=== PATIENT | male | born 1970 | race Caucasian/White ===

== ENCOUNTER 2017-05-07 22:03 | Emergency (ER) | payer BC, OTHER ==
--- NOTE | 2017-05-07 22:32 | ERPHSYRPT ---
- History of Present Illness Time Seen by Provider: 05/07/17 22:29 Source: patient Physician History: 46-year-old male came to the emergency room with injury to his right index finger with puncture injury to the medial side of his right index finger with 2 superficial puncture wound 1 cm apart. Patient got concerned he could not figure out injury. weather Due to peterson or, possibly spider bite, so he came to the emergency room Occurred: just prior to arrival Method of Injury: unknown Severity of Pain-Max: none Severity of Pain-Current: none Extremities Pain Location: 2nd finger: right (minimal tingling and numbness) Allergies/Adverse Reactions: No Known Drug Allergies Allergy (Unverified 05/07/17 22:44) Home Medications: No Reportable Medications [No Reported Medications] 05/07/17 [History] - Review of Systems Constitutional: No Symptoms Eyes: No Symptoms Ears, Nose, & Throat: No Symptoms Respiratory: No Symptoms Cardiac: No Symptoms Abdominal/Gastrointestinal: No Symptoms Musculoskeletal: Other (right index finger injury) Skin: No Symptoms - Nursing Vital Signs Nursing Vital Signs: Initial Vital Signs Temperature 98.5 F Temperature Source Oral Pulse Rate 70 Respiratory Rate 20 Blood Pressure [] 144/100 Pain Intensity 2 - Physical Exam General Appearance: no apparent distress Hand Exam: normal ROM, soft tissue tenderness, swelling, No bone tenderness, No deformity, No laceration, No limited ROM, No nail injury - Course Nursing assessment & vital signs reviewed: Yes - Radiology Exams Hand X-ray Interpretation: Reviewed by me Ordered Tests: Active Orders 24 hr Category Date Time Status HAND (MINIMUM 3 VIEWS) Stat Exams 05/07/17 22:28 Taken Medication Summary Discontinued Medications Generic Name Dose Route Start Last Admin Trade Name Freq PRN Reason Stop Dose Admin Diphtheria/Tetanus/Acell Pertussis 0.5 ml 05/07/17 22:52 Adacel Vial IM 05/07/17 22:53 .ONCE ONE - Progress Progress: improved Counseled pt/family regarding: diagnosis, need for follow-up, rad results - Departure Time of Disposition: 22:54 Departure Disposition: Home Clinical Impression: Injury of finger of right hand Qualifiers: Encounter type: initial encounter Qualified Code(s): S69.91XA - Unspecified injury of right wrist, hand and finger(s), initial encounter Condition: Good Critical Care Time: No Referrals: JANESSA MURRAY NP [Primary Care Provider] -
[2017-05-07 22:50] VITALS: BP 144/100; PULSE 70; O2SAT 20
[2017-05-07] MEDS ORDERED: Adacel Vial IM ONE ×2 (22:52→22:54)
--- NOTE | 2017-05-08 06:38 | XRAY ---
Indication: Second finger puncture wound. Comparison: None 3 views of the right hand demonstrates mild proximal second finger soft tissue swelling. No other bony, articular, or soft tissue abnormalities.
== END 2017-05-07 23:10 | disposition home or self-care (01) ==
LOC: ED 22:03
DX: S61.230A Puncture wound without foreign body of right index finger without damage to nail, initial encounter (principal)
CPT/HCPCS: 73130; 90471; 90715; 99281; 99284

== ENCOUNTER 2017-10-20 06:14 | Day surgery (SDC) | payer OTHER ==
[2017-10-20] MEDS ORDERED: Lactated Ringers 1,000 ML IV SCH (06:30)
[2017-10-20 09:33] VITALS: O2SAT 100
[2017-10-20 10:31] VITALS: BP 154/107; PULSE 57
--- NOTE | 2017-10-21 07:46 | OP ---
SURGERY DATE/TIME: 10/20/2017 0755 PREOPERATIVE DIAGNOSES: 1) Nausea and vomiting. 2) Abdominal pain. POSTOPERATIVE DIAGNOSES: 1) Moderate gastritis. 2) Normal colon. 3) Poor bowel prep. PROCEDURES: 1) EGD. 2) Colonoscopy. SURGEON: Lito Antoine M.D. ANESTHESIA: MAC by Ace Stewart CRNA. ESTIMATED BLOOD LOSS: Minimal. SPECIMENS: Two cold forceps biopsies from the gastric antrum sent for Helicobacter pylori testing. DESCRIPTION OF PROCEDURE: After informed written consent was obtained, the patient was taken to the endoscopy suite. He underwent monitored anesthesia and a bite block was inserted. The endoscope was inserted in the posterior oropharynx and under direct visualization the esophagus was traversed. The gastroesophageal junction had a normal appearance free of lesions or defects. The gastric mucosa appeared normal with no obvious lesions or defects until the level of the gastric antrum was reached. There was diffuse moderate gastritis type changes with no focal ulcerations or bleeding present. The pylorus was traversed and the first and second portions of the duodenum were within normal limits. Two cold forceps biopsies were taken from the antrum and sent for Helicobacter pylori testing. The remainder of the exam again was unremarkable upon withdrawal of the scope. The scope was removed and the scopes were switched. Digital rectal exam showed normal sphincter tone and no internal lesions. The scope was inserted in the rectum and sequentially the entire colonic mucosa was traversed. The level of cecum was reached and verified with direct visualization of ileocecal valve. Upon withdrawal careful mucosal inspection revealed no obvious or gross abnormalities. However there was semisolid stool present throughout the entire length of the colon with poor visualization at multiple areas. Irrigation and suction were used to improve the view. We were able but the exam was suboptimal due to the poor bowel prep. Prior to withdrawal retroflexion showed no internal lesions. The scope was removed and the patient was transferred to the recovery room in excellent condition.
== END 2017-10-20 10:05 | disposition home or self-care (01) ==
LOC: SDC 06:14
PROVIDERS: ATTEND Family Medicine
PROC: 0DB78ZX Excision of Stomach, Pylorus, Via Natural or Artificial Opening Endoscopic, Diagnostic (ICD-10-PCS; principal; 2017-10-20)
PROC: 0DJD8ZZ Inspection of Lower Intestinal Tract, Via Natural or Artificial Opening Endoscopic (ICD-10-PCS; 2017-10-20)
DX: K29.70 Gastritis, unspecified, without bleeding (principal); R10.9 Unspecified abdominal pain
CPT/HCPCS: 740; 810

== ENCOUNTER 2018-09-23 19:37 | Emergency (ER) | payer OTHER ==
--- NOTE | 2018-09-23 21:36 | ERPHSYRPT ---
- History of Present Illness Time Seen by Provider: 09/23/18 21:30 Source: patient, family Exam Limitations: no limitations Patient Subjective Stated Complaint: Pt is alert and oriented. pt is ambulatory with a steady gait. pt states that he fell while walking his dog and hit his head. he has some debris in his laceration over his left eyebrow. pt is not actively bleeding. pt denies pain at this time. Triage Nursing Assessment: see above Physician History: pt trip walking dog and hit ground getting a piece of wood in his forehead - no LOC; Occurred: just prior to arrival Severity: mild Head Injury Location: frontal Method of Injury: fell Loss of Consciousness: no loss of consciousness Associated Symptoms: denies symptoms Allergies/Adverse Reactions: No Known Drug Allergies Allergy (Unverified 05/07/17 22:44) Home Medications: Atorvastatin Calcium [Lipitor] 10 mg PO DAILY 10/20/17 [History] Cephalexin [Keflex] 250 mg PO QID 09/23/18 [History] Hx Tetanus, Diphtheria Vaccination/Date Given: Yes Hx Influenza Vaccination/Date Given: No Hx Pneumococcal Vaccination/Date Given: No - Review of Systems Constitutional: No Fever, No Chills Eyes: No Symptoms Ears, Nose, & Throat: No Symptoms Respiratory: No Cough, No Dyspnea Cardiac: No Chest Pain, No Edema, No Syncope Abdominal/Gastrointestinal: No Abdominal Pain, No Nausea, No Vomiting, No Diarrhea Genitourinary Symptoms: No Dysuria Musculoskeletal: No Back Pain, No Neck Pain Skin: Other (lac with FB), No Rash Neurological: No Dizziness, No Focal Weakness, No Sensory Changes Psychological: No Symptoms Endocrine: No Symptoms All Other Systems: Reviewed and Negative - Past Medical History Pertinent Past Medical History: No Neurological History: No Pertinent History ENT History: No Pertinent History Cardiac History: No Pertinent History Respiratory History: No Pertinent History Endocrine Medical History: No Pertinent History Musculoskeletal History: Fractures GI Medical History: No Pertinent History History: Renal Disease Psycho-Social History: No Pertinent History Male Reproductive Disorders: No Pertinent History Other Medical History: reduced kidney function - Past Surgical History Past Surgical History: Yes Neuro Surgical History: No Pertinent History Cardiac: No Pertinent History Respiratory: No Pertinent History Gastrointestinal: No Pertinent History Genitourinary: No Pertinent History Musculoskeletal: Orthopedic Surgery Male Surgical History: No Pertinent History Other Surgical History: right ankle - Social History Smoking Status: Never smoker Exposure to second hand smoke: No Drug Use: none Patient Lives Alone: No - Nursing Vital Signs Nursing Vital Signs: Initial Vital Signs Pulse Rate 86 09/23/18 19:57 Respiratory Rate 18 09/23/18 19:57 Blood Pressure 153/96 09/23/18 19:57 O2 Sat by Pulse Oximetry 96 09/23/18 19:57 Pain Scale Pain Intensity 0 - Lula Coma Score Best Eye Response (Creole): (4) open spontaneously Best Verbal Response (Lula): (5) oriented Best Motor Response (Creole): (6) obeys commands Creole Total: 15 - Physical Exam General Appearance: no apparent distress, alert Eye Exam: bilateral eye: PERRL, EOMI ENT Exam: airway nml Cardiovascular/Respiratory Exam: chest non-tender, normal breath sounds, regular rate/rhythm Gastrointestinal/Abdominal Exam: soft, non tender, no distention Back Exam: normal inspection, No vertebral tenderness Extremity Exam: non-tender, normal range of motion, normal inspection Mental Status Exam: alert, oriented x 3, cooperative Coordination/Gait Exam: normal finger to nose, normal gait Motor/Sensory Exam: no motor deficit, no sensory deficit, CN II-XII intact DTR Exam: bicep (R): 2+, bicep (L): 2+, tricep (R): 2+, tricep (L): 2+, knee (R) : 2+, knee (L): 2+, ankle (R): 2+, ankle (L): 2+ Skin Exam: normal color, warm, dry, No rash SpO2 Interpretation: normal SpO2: 96 Oxygen Delivery: Room Air Procedures - Laceration/Wound Repair Left Head Wound Location: Left, forehead Wound Length (cm): 4 Wound's Depth, Shape: irregular, into subcut Wound Explored: foreign body removed Irrigated: Yes (500 cc) Hibiclens Prep: Yes Anesthesia: 1% Lidocaine Volume Anesthetic (ccs): 3 Wound Debrided: extensive Suture Size/Type: 5-0, ethilon Number of Sutures: 8 Layer Closure?: No Sterile Dressing Applied?: Yes Splint Applied?: No Sling Applied?: No - Course Nursing assessment & vital signs reviewed: Yes - Progress Progress: improved, re-examined Progress Note: 09/23/18 21:32 pt was advised that some small foregn material likely or at least microscopic is still in wound and discussed pro and con of closing vs open packing and he would like to have it closed and take the chance for infection , without further immediate surgery or referral at this time- debridement removed much FB and eventually no further is seen or palpable or on belinda wipes of recesses of the wound; irrigation was also accomplished. 09/23/18 21:42 pt advised that a scar is likely , and that if infection occurs it will have to be packed open . Counseled pt/family regarding: diagnosis, need for follow-up, rad results - Departure Time of Disposition: 21:38 Departure Disposition: Home Clinical Impression: fb laceration forehead Condition: Good Critical Care Time: No Referrals: JANESSA MURRAY NP [Primary Care Provider] - Instructions: Removal of Foreign Body in Skin, Concussion in Adults Additional Instructions: there could still be some or at least microscopic material in the wound and it is at increased risk sherrill infectin , so f/u with your dr is important and sutures should be removed in 5 days . return meantime id any signs of infection or concerns; recheck your BP with your dr as it is a little elevated. Prescriptions: Cephalexin Mh 500 mg [Keflex 500 mg] 500 mg PO QID #60 capsule
[2018-09-23 22:52] VITALS: BP 151/97; PULSE 81; O2SAT 95
--- NOTE | 2018-09-24 08:22 | XRAY ---
Indication: Right periorbital pain following fall. Possible foreign body. Comparison: None 4 views of the orbits obtained. No bony, articular, or soft tissue abnormalities. Specifically no radiopaque foreign body. Mild opacification left maxillary sinus without fluid leveling. Impression: Negative orbits. Incidental left maxillary sinus disease.
== END 2018-09-23 22:56 | disposition home or self-care (01) ==
LOC: ED 19:37
DX: S01.82XA Laceration with foreign body of other part of head, initial encounter (principal); W01.198A Fall on same level from slipping, tripping and stumbling with subsequent striking against other object, initial encounter; Y93.K1 Activity, walking an animal; Z79.899 Other long term (current) drug therapy
CPT/HCPCS: 12002; 70200; 99283

== ENCOUNTER 2021-11-16 22:55 | Emergency (ER) | payer BC, OTHER ==
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
[2021-11-16] MEDS ORDERED: Hydromorphone 1 mg/ml Injection IM ONE (23:10)
[2021-11-16] MEDS ORDERED: Norflex 60 MG/2 ML IM ONE (23:11)
[2021-11-16] MEDS ORDERED: ZOFRAN ODT 4 MG PO ONE (23:11)
[2021-11-16] MEDS ORDERED: solu-MEDROL 125 MG, Sterile H2O 10 ml 2 ML IM ONE ×2 (23:12)
[2021-11-16] MEDS ORDERED: Norflex 60 MG/2 ML ONE (23:20)
[2021-11-16] MEDS ORDERED: ZOFRAN ODT 4 MG ONE (23:20)
[2021-11-16] MEDS ORDERED: Hydromorphone 1 mg/ml Injection ONE (23:20)
[2021-11-16] MEDS ORDERED: solu-MEDROL ONE (23:21)
[2021-11-16] MEDS ORDERED: Sterile H2O 10 ml IJ ONE (23:21)
[2021-11-16] MEDS ORDERED: PERCOCET TABLET 5/325MG PO STA (23:56)
[2021-11-17] MEDS ORDERED: PERCOCET TABLET 5/325MG ONE (00:01)
[2021-11-17 00:18] VITALS: BP 123/86; PULSE 60; O2SAT 98
--- NOTE | 2021-11-17 08:53 | XRAY ---
Indication: Pain following fall. Comparison: None 2 view right ribs demonstrates mild degenerative changes throughout visualized thoracolumbar spine. No other bony, articular, or soft tissue abnormalities.
== END 2021-11-17 00:18 | disposition home or self-care (01) ==
LOC: ED 22:55
DX: S20.211A Contusion of right front wall of thorax, initial encounter (principal); Y93.72 Activity, wrestling; U07.1 COVID-19; E78.5 Hyperlipidemia, unspecified; I10 Essential (primary) hypertension; E11.9 Type 2 diabetes mellitus without complications; Z79.891 Long term (current) use of opiate analgesic; Z79.52 Long term (current) use of systemic steroids
CPT/HCPCS: 71100; 96372; 99284; J1170; J2360; J2930; Q0162; A9270-GY

== ENCOUNTER 2021-11-21 14:50 | Emergency (ER) | payer OTHER ==
[2021-11-21 15:17] VITALS: BP 111/82
[2021-11-21] MEDS ORDERED: Hydromorphone 1 mg/ml Injection IM ONE (15:29)
[2021-11-21] MEDS ORDERED: Hydromorphone 1 mg/ml Injection ONE (15:36)
--- NOTE | 2021-11-21 16:34 | XRAY ---
Indication: Right flank/back pain. Multiple contiguous axial images obtained through the abdomen and pelvis without contrast. Comparison: None Lung bases hyperinflated and clear. Heart not enlarged. Noncontrasted stomach and bowel loops appear nonobstructed. Normal air-filled appendix. Mild diffuse scattered colonic fecal debris greatest in the right hemicolon. No free fluid/air. Right kidney is atrophic. Remaining liver, gallbladder, pancreas, spleen, adrenal glands, kidneys, ureters, and bladder are unremarkable for noncontrast exam. Minimal aortoiliac calcifications without AAA. Osseous structures intact with mild degenerative changes throughout the thoracolumbar spine. No ventral or inguinal hernias. Impression: 1. Mild fecal stasis greatest in right hemicolon. 2. Right renal atrophy. 3. Remaining CT abdomen/pelvis without contrast exam is negative.
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
[2021-11-21 17:09] VITALS: PULSE 72; O2SAT 97
== END 2021-11-21 17:08 | disposition home or self-care (01) ==
LOC: ED 14:50
DX: S20.221A Contusion of right back wall of thorax, initial encounter (principal); W03.XXXA Other fall on same level due to collision with another person, initial encounter; Y93.72 Activity, wrestling; E78.5 Hyperlipidemia, unspecified; I10 Essential (primary) hypertension; E11.9 Type 2 diabetes mellitus without complications; Z79.891 Long term (current) use of opiate analgesic
CPT/HCPCS: 74176; 96372; 99284; J1170; L0625

== ENCOUNTER 2025-02-12 00:50 | Emergency (ER) | payer OTHER ==
[2025-02-12] MEDS ORDERED: XYLOCAINE 1% HCL 20 ML MDV IJ ONE (00:51)
[2025-02-12 01:08] VITALS: TEMP 98.5
[2025-02-12] MEDS ORDERED: Rocephin 1000 MG INJ ONE (01:22)
[2025-02-12] MEDS ORDERED: NORCO 5/325 MG ONE (01:22)
[2025-02-12] MEDS ORDERED: XYLOCAINE 1% HCL 20 ML MDV ONE (01:22)
[2025-02-12] MEDS: NORCO 5/325 MG PO ONE (01:24)
--- NOTE | 2025-02-12 01:25 | ERPHSYRPT ---
- History of Present Illness Time Seen by Provider: 02/12/25 01:21 Source: patient Exam Limitations: no limitations Patient Subjective Stated Complaint: c/o toothache Triage Nursing Assessment: patient brought self to ED with c/o toothache and facial swelling. patient had the same pain a month ago with the same tooth on bottom right side of mouth. No drainage present, swelling and tenderness present. Patient rates pain 6/10, hypertensive, gait steady, patient doesn't appear to be in any distress at this time. Timing/Duration: today Severity: mild Modifying Factors: Improves With: cold therapy, eating Associated Symptoms: denies symptoms Allergies/Adverse Reactions: No Known Drug Allergies Allergy (Verified 02/12/25 00:56) Home Medications: Losartan Potassium 25 mg PO DAILY 02/09/25 [History] allopurinoL [Allopurinol] 200 mg PO DAILY 02/09/25 [History] Hx Tetanus, Diphtheria Vaccination/Date Given: Yes Hx Influenza Vaccination/Date Given: No Hx Pneumococcal Vaccination/Date Given: No Travel Risk - International Travel Have you traveled outside of the country in past 3 weeks: No - Emerging Infectious Disease Are you exhibiting symptoms associated with any current EIDs: No - Review of Systems Constitutional: No Symptoms Eyes: No Symptoms Ears, Nose, & Throat: Other (toothache) Respiratory: No Symptoms Cardiac: No Symptoms Abdominal/Gastrointestinal: No Symptoms Genitourinary Symptoms: No Symptoms Musculoskeletal: No Symptoms - Past Medical History Pertinent Past Medical History: No Neurological History: Other ENT History: No Pertinent History Cardiac History: Hypertension Respiratory History: No Pertinent History Endocrine Medical History: No Pertinent History Musculoskeletal History: Arthritis GI Medical History: No Pertinent History History: Renal Disease Psycho-Social History: No Pertinent History Male Reproductive Disorders: No Pertinent History Other Medical History: KIDNEY DISEASE (STAGE 3-4) - Past Surgical History Past Surgical History: Yes Neuro Surgical History: No Pertinent History Cardiac: No Pertinent History Respiratory: No Pertinent History Gastrointestinal: No Pertinent History Genitourinary: No Pertinent History Musculoskeletal: Orthopedic Surgery Male Surgical History: No Pertinent History Other Surgical History: right ankle, right tibia, gout - Social History Smoking Status: Never smoker Exposure to second hand smoke: No Drug Use: none - Social Determinants of Health Will the patient participate in the screening: Yes Do you worry about a steady place to live?: No Do you have any problems with any of the following?: No known problems In the past 12 months,have you had to go without utilities?: No Transportation Issues: No Has anyone in your support network made you feel unsafe?: No Have you or anyone in your house had to go w/o enough food: No - Nursing Vital Signs Nursing Vital Signs: Initial Vital Signs Temperature 98.5 F 02/12/25 00:57 Pulse Rate 85 02/12/25 00:57 Respiratory Rate 19 02/12/25 00:57 Blood Pressure 170/117 02/12/25 00:57 O2 Sat by Pulse Oximetry 98 02/12/25 00:57 Pain Scale Pain Intensity 6 - Physical Exam General Appearance: no apparent distress Eye Exam: PERRL/EOMI Ears, Nose, Throat Exam: normal ENT inspection, other (mutiple dental caries noted with right sided facial swelling to the lower jaw) Respiratory Exam: normal breath sounds Cardiovascular Exam: regular rate/rhythm Gastrointestinal/Abdomen Exam: soft, normal bowel sounds SpO2: 98 Ordered Tests: Medication Summary Discontinued Medications Generic Name Dose Route Start Last Admin Trade Name Robq PRN Reason Stop Dose Admin Ceftriaxone Sodium 1,000 mg 02/12/25 01:20 Ceftriaxone Sodium 1000 Mg Inj Vial IM 02/12/25 01:21 STAT ONE - Progress Progress Note: Patient was given 1 g Rocephin here in the department he will be sent home with [place] for pain relief and antibiotics and informed of the need to follow-up with a dentist in the morning 02/12/25 01:23 Medical Desision Making - Discussion of managment Agreed on:: need for follow-up - Departure Departure Disposition: Home Clinical Impression: Dental caries Condition: Stable Critical Care Time: No Referrals: JANESSA MURRAY NP [Primary Care Provider] - Follow up/PCP as directed Prescriptions: Cephalexin Mh 500 mg [Keflex 500 mg] 500 mg PO Q6H #28 cap
[2025-02-12] MEDS: Rocephin 1000 MG INJ IM ONE (01:26)
[2025-02-12 01:36] VITALS: RESP 18
[2025-02-12 01:47] VITALS: BP 181/115; PULSE 90; O2SAT 96
== END 2025-02-12 01:53 | disposition home or self-care (01) ==
LOC: ED 00:50
DX: K02.9 Dental caries, unspecified (principal); K08.89 Other specified disorders of teeth and supporting structures; I12.9 Hypertensive chronic kidney disease with stage 1 through stage 4 chronic kidney disease, or unspecified chronic kidney disease; N18.9 Chronic kidney disease, unspecified; Z79.899 Other long term (current) drug therapy
CPT/HCPCS: 96372; 99282; 99283; J0696; A9270-GY

== ENCOUNTER 2025-02-22 10:08 | Day surgery (SDC) | payer OTHER ==
[2025-02-22] MEDS: Lactated Ringers 1,000 ML IV SCH (10:17)
[2025-02-22 10:20] VITALS: RESP 18
[2025-02-22 10:23] VITALS: O2SAT 98
[2025-02-22] MEDS ORDERED: Versed 2 MG/2 ML Injection ONE (11:38)
[2025-02-22] MEDS ORDERED: Xylocaine-Mpf 2% 5 Ml Vial ONE (11:38)
[2025-02-22] MEDS ORDERED: SUBLIMAZE 100 MCG/2 ML ONE (11:38)
[2025-02-22] MEDS ORDERED: propofoL IV ONE ×2 (11:38→11:47)
[2025-02-22 12:34] VITALS: TEMP 97.1
[2025-02-22 12:41] VITALS: BP 130/88; PULSE 62
--- NOTE | 2025-02-23 09:10 | OP ---
SURGERY DATE/TIME: 02/22/2025 [id number] PREOPERATIVE DIAGNOSIS: Due for colorectal cancer screening, average risk. POSTOPERATIVE DIAGNOSES: 1) Moderate internal and external hemorrhoids without thrombosis. 2) Diverticulosis to the sigmoid colon. PROCEDURE: Colonoscopy. SURGEON: Rio Smith MD ANESTHESIA: IV anesthesia. PATIENT CONDITION: Stable. COMPLICATIONS: None. SPECIMENS: None. INDICATIONS: The patient is a 54-year-old male with an average-risk screening due for screening colonoscopy. Discussed with the patient and he elects to proceed. FINDINGS: Fair preparation with about 90% visualization of the mucosa. Recall 5 to 7 years. DESCRIPTION OF PROCEDURE: Patient was brought to the endoscopy suite. Routinely positioned and prepared. IV anesthesia was induced by Anesthesia. The external examination shows really no significant evidence of his previous surgery. He has a left external hemorrhoid without thrombosis. Digital rectal exam otherwise normal. Colonoscope was inserted and advanced to the cecum, confirmed by the ileocecal valve and appendiceal orifice. The withdrawal time was greater than 6 minutes. On withdrawal, there is a fair preparation, [place] fair, 90% evaluation of the mucosa. There are a few diverticula in the sigmoid colon. Upon retroflexion, there are moderate-sized internal hemorrhoids without bleeding. Patient tolerated the procedure well and was taken to Recovery in stable condition. RECOMMENDATIONS: Follow up in 5 to 7 years in office for screening.
== END 2025-02-22 12:56 | disposition home or self-care (01) ==
LOC: SDC 10:08
PROVIDERS: ATTEND Surgery
DX: Z12.11 Encounter for screening for malignant neoplasm of colon (principal); K64.4 Residual hemorrhoidal skin tags; K64.8 Other hemorrhoids; K57.30 Diverticulosis of large intestine without perforation or abscess without bleeding
CPT/HCPCS: J2250; J2704; J3010